=== PATIENT | male | born 1965 | race Caucasian/White ===

== ENCOUNTER 2016-08-20 14:54 | Emergency (ER) | payer MEDICARE ==
[~2016-08-20 14:54] MED LIST: CARAFATE1 GM PO; DYAZIDE 37.5-21 EACH PO; LASIX40 MG PO; PRINIVIL20 MG PO; PROTONIX 40MG T40 MG PO; PROZAC20 MG PO; VENTOLIN HFA IN18 GM PO
== END 2016-08-20 17:04 | disposition home or self-care (01) ==
LOC: FER 14:54
DX: S63.502A Unspecified sprain of left wrist, initial encounter (principal); S50.02XA Contusion of left elbow, initial encounter; W17.89XA Other fall from one level to another, initial encounter; W01.0XXA Fall on same level from slipping, tripping and stumbling without subsequent striking against object, initial encounter; Y92.009 Unspecified place in unspecified non-institutional (private) residence as the place of occurrence of the external cause
CPT/HCPCS: 73060; 73080; 73090; 73110; 99283

== ENCOUNTER 2020-07-19 17:00 | Emergency (ER) | payer MEDICARE, OTHER ==
[~2020-07-19 17:00] MED LIST changes: +AZITHROMYCIN250 MG PO; +BREO ELLIPTA 11 EACH PO; +IBUPROFEN800 MG PO; +ILOTYCIN1 GM OS; +METOPROLOL SUCC50 MG PO; +MOBIC7.5 MG PO; +NEURONTIN600 MG PO; +PERCOCET 5-3251 EACH PO; +PRILOSEC20 MG PO; -PROTONIX 40MG T40 MG PO; +ROBAXIN750 MG PO
[2020-07-19] MEDS ORDERED: KEFLEX250 MG PO (19:52)
[2020-07-19] MEDS ORDERED: NORCO 5-325 TA1 EACH PO (19:52)
== END 2020-07-19 20:09 | disposition home or self-care (01) ==
LOC: FER 17:00
DX: S62.665A Nondisplaced fracture of distal phalanx of left ring finger, initial encounter for closed fracture (principal); S61.315A Laceration without foreign body of left ring finger with damage to nail, initial encounter; M79.645 Pain in left finger(s); F17.290 Nicotine dependence, other tobacco product, uncomplicated; W20.8XXA Other cause of strike by thrown, projected or falling object, initial encounter; Y92.009 Unspecified place in unspecified non-institutional (private) residence as the place of occurrence of the external cause
CPT/HCPCS: 73130

== ENCOUNTER 2020-12-06 17:25 | Emergency (ER) | payer MEDICARE, OTHER ==
[~2020-12-06 17:25] MED LIST changes: +KEFLEX250 MG PO; +NORCO 5-325 TA1 EACH PO
[2020-12-06 18:33] LABS: EOSINOPHIL 2.1 % (0-5); HCT 42.7 % (42.0-52.0); HGB 14.1 g/dl (13.2-18.0); LYMPHOCYTE 28.9 % (15-48); MCH 28.5 pg (25.0-31.0); MCV 86.3 fL (78.0-100.0); MONOCYTE 7.7 % (0-12); MPV 10.8 fL (6.0-9.5); NEUTROPHIL 59.8 % (41-80); NRBC 0; PLT 263 K/uL (150-400); RBC 4.95 M/uL (4.70-6.00); RDW 13.4 % (11.5-14.0)
[2020-12-06 18:44] LABS: INR 1.06 (0.9-1.2); PROTHROMBIN TIME 13.2 SECONDS (11.8-13.4); PTT 28.8 SECONDS (24.4-34.7)
[2020-12-06 18:50] LABS: ALBUMIN 3.5 g/dL (3.4-5.0); BILIRUBIN - TOTAL 0.3 mg/dL (0.2-1.0); BUN/CREAT RATIO (CALC) 17.1 RATIO; CREATININE 0.82 mg/dL (0.67-1.17); GLOBULIN (CALCULATION) 3.4 g/dL; TOTAL PROTEIN 6.9 g/dL (6.4-8.2)
[2020-12-07 04:07] LABS: BILIRUBIN NEGATIVE (NEGATIVE); BLOOD NEGATIVE Ery/uL (NEGATIVE); CLARITY CLEAR (CLEAR); COLOR YELLOW (YELLOW); GLUCOSE (U) NORMAL (NORMAL); LEUKOCYTES NEGATIVE Leu/uL (NEGATIVE); NITRITE NEGATIVE (NEGATIVE); PROTEIN NEGATIVE (NEGATIVE); SPECIFIC GRAVITY <=1.005 (1.001-1.030); UROBILINOGEN 0.2 mg/dL (0.2-1.0); pH 6.5 (5.0-9.0)
== END 2020-12-07 05:12 | disposition home or self-care (01) ==
LOC: FER 17:25
PROVIDERS: Emergency Medicine
DX: R07.89 Other chest pain (principal); R53.83 Other fatigue; I10 Essential (primary) hypertension; Z20.822 Contact with and (suspected) exposure to COVID-19
CPT/HCPCS: 36415; 71046; 71275; 80053; 81003; 84484; 85025; 85610; 85730; 93005; J2405; J7030; Q9967; U0002

== ENCOUNTER 2021-01-03 14:23 | Inpatient (IN) | payer MEDICARE, OTHER ==
[~2021-01-03] VITALS: Ht 180.3 cm; Wt 159.0 kg
[2021-01-03 14:57] LABS: BASOPHIL 0.2 % (0-2); EOSINOPHIL 0 % (0-5); HCT 44.6 % (42.0-52.0); HGB 14.9 g/dl (13.2-18.0); LYMPHOCYTE 32.6 % (15-48); MCH 27.5 pg (25.0-31.0); MCHC 33.4 g/dL (32.0-36.0); MCV 82.3 fL (78.0-100.0); MONOCYTE 8.4 % (0-12); MPV 11.3 fL (6.0-9.5); NEUTROPHIL 58.2 % (41-80); NRBC 0; PLT 153 K/uL (150-400); RBC 5.42 M/uL (4.70-6.00); RDW 14.4 % (11.5-14.0); WBC 4.8 K/uL (4.0-10.5)
[2021-01-03 15:17] LABS: INR 1.06 (0.9-1.2); PROTHROMBIN TIME 13.2 SECONDS (11.8-13.4); PTT 33.1 SECONDS (24.4-34.7)
[2021-01-03 15:27] LABS: ALBUMIN 3.2 g/dL (3.4-5.0); BILIRUBIN - TOTAL 0.4 mg/dL (0.2-1.0); BUN/CREAT RATIO (CALC) 15.9 RATIO; CREATININE 0.69 mg/dL (0.67-1.17); GLOBULIN (CALCULATION) 3.9 g/dL; POTASSIUM 3.6 mmol/L (3.5-5.1); TOTAL PROTEIN 7.1 g/dL (6.4-8.2)
[2021-01-03 15:32] LABS: LACTIC ACID 1.3 mmol/L (0.4-1.9)
[2021-01-04 04:32] LABS: BASOPHIL 0.4 % (0-2); EOSINOPHIL 0 % (0-5); HGB 15.6 g/dl (13.2-18.0); LYMPHOCYTE 43.2 % (15-48); MCH 27.9 pg (25.0-31.0); MCHC 33.2 g/dL (32.0-36.0); MCV 83.9 fL (78.0-100.0); MONOCYTE 5.8 % (0-12); MPV 11.1 fL (6.0-9.5); NEUTROPHIL 49.4 % (41-80); NRBC 0; PLT 153 K/uL (150-400); RDW 14.3 % (11.5-14.0); WBC 2.6 K/uL (4.0-10.5)
[2021-01-04 05:22] LABS: ALBUMIN 3.3 g/dL (3.4-5.0); BILIRUBIN - TOTAL 0.3 mg/dL (0.2-1.0); BUN/CREAT RATIO (CALC) 12.2 RATIO; CREATININE 0.74 mg/dL (0.67-1.17); GLOBULIN (CALCULATION) 3.5 g/dL; POTASSIUM 4.1 mmol/L (3.5-5.1); TOTAL PROTEIN 6.8 g/dL (6.4-8.2)
[2021-01-04 17:39] LABS: BILIRUBIN NEGATIVE (NEGATIVE); BLOOD 1+ Ery/uL (NEGATIVE); CLARITY CLEAR (CLEAR); COLOR YELLOW (YELLOW); GLUCOSE (U) NORMAL (NORMAL); LEUKOCYTES NEGATIVE Leu/uL (NEGATIVE); NITRITE NEGATIVE (NEGATIVE); PROTEIN 2+ mg/dL (NEGATIVE); SPECIFIC GRAVITY >=1.030 (1.001-1.030); UROBILINOGEN 0.2 mg/dL (0.2-1.0)
[2021-01-04 17:47] LABS: SQUAMOUS EPITHELIAL CELLS RARE; URINARY WBC RARE
[2021-01-06 06:20] LABS: BASOPHIL 0.2 % (0-2); EOSINOPHIL 0 % (0-5); HCT 43.6 % (42.0-52.0); HGB 14.3 g/dl (13.2-18.0); LYMPHOCYTE 14.7 % (15-48); MCH 27.7 pg (25.0-31.0); MCHC 32.8 g/dL (32.0-36.0); MCV 84.3 fL (78.0-100.0); MONOCYTE 7.9 % (0-12); MPV 10.8 fL (6.0-9.5); NEUTROPHIL 76.4 % (41-80); NRBC 0; PLT 179 K/uL (150-400); RBC 5.17 M/uL (4.70-6.00); RDW 13.9 % (11.5-14.0)
[2021-01-06 07:00] LABS: ALBUMIN 2.6 g/dL (3.4-5.0); BILIRUBIN - TOTAL 0.3 mg/dL (0.2-1.0); CREATININE 0.6 mg/dL (0.67-1.17); GLOBULIN (CALCULATION) 3.6 g/dL; POTASSIUM 4.1 mmol/L (3.5-5.1); TOTAL PROTEIN 6.2 g/dL (6.4-8.2)
[2021-01-06] MEDS ORDERED: PROVENTIL HFA6.7 GM INH (14:59)
[2021-01-06] MEDS ORDERED: MEDROL 4MG DOSEP4 MG PO (14:59)
--- NOTE | 2021-01-06 15:05 | NUR ---
01/06/21 02 was not required at discharge.
== END 2021-01-06 16:43 | disposition home or self-care (01) | DRG 177 ==
LOC: FER 14:23 → FMS 16:05
PROVIDERS: Emergency Medicine; Nurse Practitioner; ADMIT Internal Medicine
PROC: 8E0ZXY6 Isolation (ICD-10-PCS; principal; 2021-01-03)
PROC: XW033E5 Introduction of Remdesivir Anti-infective into Peripheral Vein, Percutaneous Approach, New Technology Group 5 (ICD-10-PCS; 2021-01-03)
DX: U07.1 COVID-19 (principal); J12.82 Pneumonia due to coronavirus disease 2019; J96.01 Acute respiratory failure with hypoxia; Z68.42 Body mass index [BMI] 45.0-49.9, adult; G47.33 Obstructive sleep apnea (adult) (pediatric); J45.909 Unspecified asthma, uncomplicated; E66.01 Morbid (severe) obesity due to excess calories; I10 Essential (primary) hypertension; G89.29 Other chronic pain; K44.9 Diaphragmatic hernia without obstruction or gangrene; K21.9 Gastro-esophageal reflux disease without esophagitis; F41.9 Anxiety disorder, unspecified; F32.9 Major depressive disorder, single episode, unspecified; M19.90 Unspecified osteoarthritis, unspecified site; Z96.653 Presence of artificial knee joint, bilateral; Z99.81 Dependence on supplemental oxygen; Z87.820 Personal history of traumatic brain injury; Z90.89 Acquired absence of other organs; Z98.890 Other specified postprocedural states; Z79.899 Other long term (current) drug therapy; Z82.49 Family history of ischemic heart disease and other diseases of the circulatory system; Z83.3 Family history of diabetes mellitus
CPT/HCPCS: 36415; 36600; 71045; 71275; 80053; 81001; 82728; 82803; 82962; 83036; 83605; 83615; 84484; 85025; 85610; 85730; 86140; 93005; 94010; 94640; 94762; 97162; 97166; 97530-GP; 97535; C9399; J1100; J1650; J7030; J7050; J8540; Q9967; U0002

== ENCOUNTER 2021-04-14 18:04 | Emergency (ER) | payer OTHER, MEDICARE ==
[~2021-04-14 18:04] MED LIST changes: +MEDROL 4MG DOSEP4 MG PO; +PROVENTIL HFA6.7 GM INH
[2021-04-14] MEDS ORDERED: CYCLOBENZAPRINE10 MG PO (20:46)
== END 2021-04-14 20:57 | disposition home or self-care (01) ==
LOC: FER 18:04
DX: S43.402A Unspecified sprain of left shoulder joint, initial encounter (principal); I10 Essential (primary) hypertension; Z79.899 Other long term (current) drug therapy; W20.8XXA Other cause of strike by thrown, projected or falling object, initial encounter; Y92.512 Supermarket, store or market as the place of occurrence of the external cause
CPT/HCPCS: 73030; 73060; 73130

== ENCOUNTER → 2021-07-17 | Day surgery (SDC) | payer MEDICARE, OTHER ==
[~2021-07-17] VITALS: Ht 180.3 cm; Wt 158.9 kg
[~2021-07-17] MED LIST changes: +CYCLOBENZAPRINE10 MG PO
== END | disposition home or self-care (01) ==
LOC: FAS 07:26
DX: K31.9 Disease of stomach and duodenum, unspecified (principal); K21.00 Gastro-esophageal reflux disease with esophagitis, without bleeding; K29.60 Other gastritis without bleeding; K46.9 Unspecified abdominal hernia without obstruction or gangrene; R63.0 Anorexia; J45.909 Unspecified asthma, uncomplicated; J44.9 Chronic obstructive pulmonary disease, unspecified; I10 Essential (primary) hypertension; M19.90 Unspecified osteoarthritis, unspecified site; K21.9 Gastro-esophageal reflux disease without esophagitis; E66.01 Morbid (severe) obesity due to excess calories; Z68.43 Body mass index [BMI] 50.0-59.9, adult; Z86.16 Personal history of COVID-19; Z96.653 Presence of artificial knee joint, bilateral; Z72.0 Tobacco use
CPT/HCPCS: J2250; J2704; J7120

== ENCOUNTER 2021-08-17 22:20 | Emergency (ER) | payer MEDICARE, OTHER ==
[2021-08-18] MEDS ORDERED: NORCO 5-325 TA1 EACH PO (00:52)
== END 2021-08-18 01:10 | disposition home or self-care (01) ==
LOC: FER 22:20
DX: M25.512 Pain in left shoulder (principal); M25.532 Pain in left wrist; I10 Essential (primary) hypertension; F17.220 Nicotine dependence, chewing tobacco, uncomplicated; W01.0XXA Fall on same level from slipping, tripping and stumbling without subsequent striking against object, initial encounter; Y92.009 Unspecified place in unspecified non-institutional (private) residence as the place of occurrence of the external cause; Z28.310 Unvaccinated for COVID-19
CPT/HCPCS: 73030; 73110

== ENCOUNTER 2021-09-24 23:54 | Emergency (ER) | payer MEDICARE, OTHER ==
[2021-09-25] MEDS ORDERED: PERCOCET 5-3251 EACH PO (02:35)
[2021-09-25] MEDS ORDERED: VIBRAMYCIN100 MG PO (02:35)
== END 2021-09-25 00:24 | disposition home or self-care (01) ==
LOC: FER 23:54
DX: S62.637B Displaced fracture of distal phalanx of left little finger, initial encounter for open fracture (principal); I10 Essential (primary) hypertension; W22.8XXA Striking against or struck by other objects, initial encounter; Y92.009 Unspecified place in unspecified non-institutional (private) residence as the place of occurrence of the external cause
CPT/HCPCS: 73120

== ENCOUNTER → 2021-10-06 | Day surgery (SDC) | payer MEDICARE, OTHER ==
[~2021-10-06] VITALS: Ht 180.3 cm; Wt 158.9 kg
[~2021-10-06] MED LIST changes: +VIBRAMYCIN100 MG PO
[2021-10-06 10:53] LABS: HCT 45.3 % (42.0-52.0); HGB 14.8 g/dl (13.2-18.0); MCH 28.7 pg (25.0-31.0); MCHC 32.7 g/dL (32.0-36.0); MCV 87.8 fL (78.0-100.0); MPV 10.7 fL (6.0-9.5); RBC 5.16 M/uL (4.70-6.00); RDW 14.2 % (11.5-14.0); WBC 10.3 K/uL (4.0-10.5)
[2021-10-06 11:22] LABS: ALBUMIN 3.4 g/dL (3.4-5.0); BILIRUBIN - TOTAL 0.5 mg/dL (0.2-1.0); BUN/CREAT RATIO (CALC) 15.2 RATIO; CREATININE 0.79 mg/dL (0.67-1.17); GLOBULIN (CALCULATION) 3.8 g/dL; POTASSIUM 4.1 mmol/L (3.5-5.1); TOTAL PROTEIN 7.2 g/dL (6.4-8.2)
== END | disposition home or self-care (01) ==
LOC: FAS 08:00
PROVIDERS: Orthopaedic Surgery
DX: T84.84XA Pain due to internal orthopedic prosthetic devices, implants and grafts, initial encounter (principal); Z96.661 Presence of right artificial ankle joint; Y79.2 Prosthetic and other implants, materials and accessory orthopedic devices associated with adverse incidents; Y83.9 Surgical procedure, unspecified as the cause of abnormal reaction of the patient, or of later complication, without mention of misadventure at the time of the procedure
CPT/HCPCS: 36415; 73600; 76000; 80053; 93005; J0690; J1100; J1170; J1885; J2250; J2405; J2704; J3010; J7120

== ENCOUNTER 2021-10-23 14:55 | Emergency (ER) | payer MEDICARE, OTHER ==
[2021-10-23 16:55] LABS: BASOPHIL 0.7 % (0-2); EOSINOPHIL 1.9 % (0-5); HCT 41.6 % (42.0-52.0); HGB 13.7 g/dl (13.2-18.0); LYMPHOCYTE 25.3 % (15-48); MCHC 32.9 g/dL (32.0-36.0); MCV 87.9 fL (78.0-100.0); MONOCYTE 8.1 % (0-12); MPV 11.2 fL (6.0-9.5); NEUTROPHIL 63.4 % (41-80); NRBC 0; PLT 311 K/uL (150-400); RBC 4.73 M/uL (4.70-6.00); RDW 13.7 % (11.5-14.0)
[2021-10-23 16:59] LABS: INR 1.02 (0.9-1.2); PROTHROMBIN TIME 13.1 SECONDS (11.9-13.9); PTT 30.2 SECONDS (24.9-34.6)
[2021-10-23 17:01] LABS: D-DIMER 0.57 ug/mLFEU (0.00-0.41)
[2021-10-23 17:11] LABS: ALBUMIN 3.2 g/dL (3.4-5.0); BILIRUBIN - TOTAL 0.2 mg/dL (0.2-1.0); BUN/CREAT RATIO (CALC) 21.6 RATIO; CREATININE 0.74 mg/dL (0.67-1.17); GLOBULIN (CALCULATION) 3.9 g/dL; MAGNESIUM 1.9 mg/dL (1.8-2.4); POTASSIUM 3.6 mmol/L (3.5-5.1); TOTAL PROTEIN 7.1 g/dL (6.4-8.2)
[2021-10-23 18:24] LABS: BILIRUBIN NEGATIVE (NEGATIVE); BLOOD TRACE-LYSED Ery/uL (NEGATIVE); CLARITY CLEAR (CLEAR); COLOR YELLOW (YELLOW); GLUCOSE (U) NORMAL (NORMAL); LEUKOCYTES NEGATIVE Leu/uL (NEGATIVE); NITRITE NEGATIVE (NEGATIVE); PROTEIN NEGATIVE (NEGATIVE); SPECIFIC GRAVITY 1.015 (1.001-1.030); UROBILINOGEN 0.2 mg/dL (0.2-1.0)
[2021-10-23 18:39] LABS: URINARY RBC RARE
== END 2021-10-23 19:49 | disposition other institution (70) ==
LOC: FER 14:55
PROVIDERS: Emergency Medicine
DX: I63.50 Cerebral infarction due to unspecified occlusion or stenosis of unspecified cerebral artery (principal); G81.94 Hemiplegia, unspecified affecting left nondominant side; R29.707 NIHSS score 7; I10 Essential (primary) hypertension; Z28.310 Unvaccinated for COVID-19
CPT/HCPCS: 36415; 70450; 71045; 80053; 81001; 83735; 84484; 85025; 85379; 85610; 85730; 93005; J2997

== ENCOUNTER 2021-11-12 07:10 | Emergency (ER) | payer MEDICARE, OTHER ==
[2021-11-12 08:44] LABS: INR 1.02 (0.9-1.2); PROTHROMBIN TIME 13.1 SECONDS (11.9-13.9); PTT 28.1 SECONDS (24.9-34.6)
[2021-11-12 08:47] LABS: ALBUMIN 3.3 g/dL (3.4-5.0); BILIRUBIN - TOTAL 0.5 mg/dL (0.2-1.0); CREATININE 0.65 mg/dL (0.67-1.17); GLOBULIN (CALCULATION) 3.5 g/dL; POTASSIUM 4.2 mmol/L (3.5-5.1); TOTAL PROTEIN 6.8 g/dL (6.4-8.2)
[2021-11-12] MEDS ORDERED: LISINOPRIL40 MG PO (11:07)
[2021-11-12] MEDS ORDERED: FIORICET1 EACH PO (11:07)
== END 2021-11-12 11:35 | disposition home or self-care (01) ==
LOC: FER 07:10
PROVIDERS: Emergency Medicine
DX: I10 Essential (primary) hypertension (principal); K21.9 Gastro-esophageal reflux disease without esophagitis; Z20.822 Contact with and (suspected) exposure to COVID-19; Z28.310 Unvaccinated for COVID-19; Z79.82 Long term (current) use of aspirin; Z79.899 Other long term (current) drug therapy
CPT/HCPCS: 36415; 36600; 70450; 71045; 80053; 82803; 83735; 83880; 84145; 84484; 85610; 85730; 93005; J2765; J3010; U0002